=== PATIENT | female | born 1990 | race Caucasian/White ===

== ENCOUNTER 2017-04-09 05:27 | Day surgery (SDC) | payer BC, OTHER ==
[~2017-04-09] VITALS: Ht 154.9 cm; Wt 83.9 kg
[~2017-04-09 05:27] MED LIST: ADZENYS XR-OD18.8 MG PO; NABUMETONE 500500 M1 PO; NABUMETONE 750750 M1 PO; SOLODYN80 MG PO; VENTOLIN HFA 1818 GM INH; WELLBUTRIN XL300 MG PO
[2017-04-09 07:00] VITALS: BP 118/70
[2017-04-09 11:02] VITALS: BP 118/70
== END 2017-04-09 11:48 | disposition home or self-care (01) ==
LOC: OR 05:27 → TBA 05:27 → OR 09:17
DX: M25.851 Other specified joint disorders, right hip (principal); J45.990 Exercise induced bronchospasm; Z98.890 Other specified postprocedural states
CPT/HCPCS: 50010; 50101; 50386; 51538; 52298; 52304; 55430; 56524; 56527; 57092; 62110; 62900; 70005